=== PATIENT | male | born 1995 | race Caucasian/White ===

== ENCOUNTER 2019-08-08 01:49 | Emergency (ER) | payer MEDICAID ==
[~2019-08-08] VITALS: Ht 175.3 cm; Wt 64.4 kg
[2019-08-08 01:52] VITALS: BP 110/65
[2019-08-08] MEDS: KETOROLAC 60 MG/2 ML VIAL IM ONE (02:06)
[2019-08-08 02:22] VITALS: BP 110/65
== END 2019-08-08 02:22 | disposition home or self-care (01) ==
LOC: MED 01:49
DX: M79.10 Myalgia, unspecified site (principal)
CPT/HCPCS: 96372; 99283; J1885

== ENCOUNTER 2020-02-16 12:49 | Emergency (ER) | payer SELFPAY ==
[~2020-02-16] VITALS: Ht 175.3 cm; Wt 66.7 kg
[2020-02-16 12:54] VITALS: BP 145/77
--- NOTE | 2020-02-16 13:01 | NUR ---
PT AMBULATED TO BED 12
--- NOTE | 2020-02-16 13:15 | NUR ---
24/M presents to ED with complaints of headache since Friday. Patient reports he was at a [place] on Friday and had an episode of syncope. He reports that EMS was called and he was told his blood sugar was low. Patient does not recall what his blood sugar was on scene. Pt c/o dull headache, 04/03. Patient denies vision changes. Denies medical hx. Placed on pulse oximetry and blood pressure monitoring. VSS.
--- NOTE | 2020-02-16 13:18 | NUR ---
Pt report given to Divina RAMIREZ. Transfer of care at this time.
[2020-02-16] MEDS ORDERED: NACL 0.9% 1,000 ML IV ONE (13:20)
--- NOTE | 2020-02-16 13:32 | NUR ---
Pt amb to bathroom steady gait to provide urine sample.
[2020-02-16 13:45] LABS: BASOPHILS % (AUTO) 0.2 % (0.0-2.0); EOSINOPHILS % (AUTO) 0.3 % (0.0-4.0); HEMATOCRIT 43.9 % (36-52); HEMOGLOBIN 14.6 g/dL (12.0-18.0); LYMPHOCYTES # (AUTO) 1.3 K/uL (2.0-11.5); LYMPHOCYTES % (AUTO) 18.7 % (20.5-51.1); MEAN CORPUSCULAR HEMOGLOBIN 30 pg (27-31); MEAN CORPUSCULAR HGB CONC 33 g/dL (33-37); MEAN CORPUSCULAR VOLUME 89.2 fL (80-94); MONOCYTES # (AUTO) 0.6 K/uL (0.8-1.0); MONOCYTES % (AUTO) 8.8 % (1.7-9.3); NEUTROPHILS # (AUTO) 5.2 K/uL (1.8-7.7); PLATELET COUNT (AUTO) 182 K/uL (140-450); RED BLOOD CELL COUNT(AUTO) 4.93 MIL/uL (4.20-6.10); RED CELL DISTRIBUTION WIDTH 13.1 % (11.6-13.7); WHITE BLOOD COUNT (AUTO) 7.2 K/uL (4.8-10.8)
[2020-02-16 14:16] LABS: BILIRUBIN,URINE NEGATIVE (NEGATIVE); BLOOD, URINE NEGATIVE (NEGATIVE); COLOR,URINE YELLOW (YELLOW); LEUKOCYTE ESTERASE ,URINE NEGATIVE (NEGATIVE); NITRITE, URINE NEGATIVE (NEGATIVE); PH,URINE 5.5 (5.0-9.0); UGLUCOSE NEGATIVE (NEGATIVE)
[2020-02-16 14:21] LABS: APPEARANCE,URINE CLEAR (CLEAR)
[2020-02-16 14:31] LABS: ANION GAP 12.4 (8-16); ASPARTATE AMINOTRANSFERASE 19 U/L (15-37); CARBON DIOXIDE 27.9 mmol/L (21-32); CHLORIDE 102 mmol/L (98-107); CREATININE 1.5 mg/dL (0.6-1.3); GFR ARICAN-AMERICAN 75 mL/min (>90); GLUCOSE 99 mg/dL (74-106); POTASSIUM 3.3 mmol/L (3.5-5.1); SODIUM SERUM 139 mmol/L (136-145); UREA NITROGEN, BLOOD 20 mg/dL (7-18)
[2020-02-16 14:54] LABS: ACETONE, SERUM NEGATIVE (NEGATIVE)
[2020-02-16] MEDS ORDERED: KETOROLAC 15 MG/ML VIAL IVP ONE (15:25)
--- NOTE | 2020-02-16 15:59 | NUR ---
PT IS RESTING IN THE BED.
[2020-02-16 16:18] VITALS: BP 123/78
== END 2020-02-16 16:18 | disposition home or self-care (01) ==
LOC: MED 12:49
DX: R51 Headache (principal); R55 Syncope and collapse
CPT/HCPCS: 36415; 70450; 80053; 81003; 82009; 85025; 96360; 99284; J7030; 96361; 99285; J1885

== ENCOUNTER 2023-02-01 14:49 | Emergency (ER) | payer SELFPAY ==
[~2023-02-01] VITALS: Ht 175.3 cm; Wt 63.8 kg
[2023-02-01 14:59] VITALS: BP 119/62
--- NOTE | 2023-02-01 15:08 | NUR ---
Patient ambulated to bed 7.
--- NOTE | 2023-02-01 15:18 | NUR ---
Patient being evaluated by physician at bedside.
[2023-02-01] MEDS ORDERED: KETOROLAC 60 MG/2 ML VIAL IM ONE (15:25)
[2023-02-01] MEDS ORDERED: IBUP-2213 PO (15:28)
[2023-02-01 15:43] VITALS: BP 104/70
--- NOTE | 2023-02-01 15:49 | NUR ---
Patient discharged with v/s stable. Written and verbal after care instructions given and explained. Patient verbalized understanding. Ambulatory with steady gait. All questions addressed prior to discharge. Advised to follow up with PMD.
--- NOTE | 2023-02-01 16:17 | NUR ---
The patient's care was reviewed and supervised by [facility], RN.
== END 2023-02-01 15:43 | disposition home or self-care (01) ==
LOC: MED 14:49
DX: R51.9 Headache, unspecified (principal); R11.0 Nausea
CPT/HCPCS: 96372; 99283; J1885

== ENCOUNTER 2023-03-20 14:13 | Emergency (ER) | payer SELFPAY ==
[~2023-03-20] VITALS: Ht 175.3 cm; Wt 63.5 kg
[~2023-03-20 14:13] MED LIST: IBUP-2213 PO
--- NOTE | 2023-03-20 14:36 | NUR ---
CALL FOR TRIAGE , NO ANSWER
[2023-03-20 15:09] VITALS: BP 147/69; PULSE 92; RESP 20; TEMP 98.6; O2SAT 98
[2023-03-20] MEDS ORDERED: HYDR28CR38 TP (16:17)
[2023-03-20] MEDS ORDERED: LORA10SG1 PO (16:17)
[2023-03-20] MEDS ORDERED: DIPH25TA53 PO (16:17)
--- NOTE | 2023-03-20 16:33 | NUR ---
Patient discharged with v/s stable. Written and verbal after care instructions FOR RASH AND INSECT BITE given and explained. Patient alert, oriented and verbalized understanding of instructions. Ambulatory All questions addressed prior to discharge. ID band removed. Patient advised to follow up with PMD. Rx of BENADRYL,CLARITIN AND CORTIZONE given. Opportunity to ask questions provided and answered.
--- NOTE | 2023-03-20 16:33 | NUR ---
Note yadira in EDM - 03/20/23 at 1635 by [facility] Patient discharged with v/s stable. Written and verbal after care instructions FOR RASH AND INSECT BITE given and explained. Patient alert, oriented and verbalized understanding of instructions. Ambulatory with by parent. All questions addressed prior to discharge. ID band removed. Patient advised to follow up with PMD. Rx of BENADRYL,CLARITIN AND CORTIZONE given. Opportunity to ask questions provided and answered.
--- NOTE | 2023-03-20 19:11 | NUR ---
The patient's care was reviewed and supervised by Stephani Barr RN, RN.
== END 2023-03-20 16:33 | disposition home or self-care (01) ==
LOC: MED 14:13
DX: S50.862A Insect bite (nonvenomous) of left forearm, initial encounter (principal); S30.860A Insect bite (nonvenomous) of lower back and pelvis, initial encounter; S50.861A Insect bite (nonvenomous) of right forearm, initial encounter; Z79.899 Other long term (current) drug therapy; Z79.1 Long term (current) use of non-steroidal anti-inflammatories (NSAID); W57.XXXA Bitten or stung by nonvenomous insect and other nonvenomous arthropods, initial encounter; Y92.89 Other specified places as the place of occurrence of the external cause; Y93.89 Activity, other specified; Y99.8 Other external cause status
CPT/HCPCS: 99282